=== PATIENT | female | born 1950 | race Hispanic/Latino ===

== ENCOUNTER 2017-08-05 09:31 | Outpatient (CLI) | payer MEDICARE ==
--- NOTE | 2017-08-05 11:59 | MMO ---
BILATERAL MAMMOGRAMS: HISTORY: Screening mammography. COMPARISON: Baseline study. FINDINGS: Scattered fibroglandular densities and benign-appearing calcifications are present. There is no dom inant mass or suspicious calcifications. The study was evaluated with the assistance of computer-aided detection. IMPRESSION: BI-RADS category 1. Negative. Suggest routine followup. POS: [facility]
== END 2017-08-05 09:32 | disposition home or self-care (01) ==
LOC: SCSMAMMO 09:31
PROVIDERS: ATTEND Family Medicine
DX: Z12.31 Encounter for screening mammogram for malignant neoplasm of breast (principal)
CPT/HCPCS: 77067; G0202